=== PATIENT | female | born 1945 | race Caucasian/White ===

== ENCOUNTER → 2016-11-20 | Outpatient (CLI) | payer MEDICARE | END | disposition home or self-care (01) | LOC: PT 13:06 ==

== ENCOUNTER 2017-03-23 10:00 | Outpatient (RCR) | payer MEDICARE | END 2017-04-05 | disposition home or self-care (01) | LOC: PT | DX: Z47.1 Aftercare following joint replacement surgery (principal); Z96.651 Presence of right artificial knee joint ==

== ENCOUNTER → 2017-04-10 | Outpatient (CLI) | payer MEDICARE | LOC: MAMMO 08:06 | DX: Z12.31 Encounter for screening mammogram for malignant neoplasm of breast (principal) | CPT/HCPCS: G0202 ==

== ENCOUNTER 2018-12-29 10:08 | Emergency (ER) | payer MEDICARE ==
[~2018-12-29] VITALS: Wt 65.8 kg
[2018-12-29] MEDS ORDERED: TYMLOS1.56 ML SQ (10:13)
[2018-12-29] MEDS ORDERED: ZESTRIL5 M1 PO (10:13)
[2018-12-29] MEDS ORDERED: ONE-A-DAY ESSE1 EACH PO (10:14)
[2018-12-29] MEDS ORDERED: SYNTHROID0.075 MG PO (10:14)
[2018-12-29] MEDS ORDERED: CALCITRIOL0.25 MCG PO (10:14)
[2018-12-29 10:37] LABS: BASO # 0.1 (0.02-0.10); EOS # 0.1 (0.04-0.40); EOS % 1.1 % (1.0-5.0); HEMATOCRIT 39.7 % (37.0-47.0); HEMOGLOBIN 13.5 g/dL (12.5-16.0); LYMPH# 1.6 (1.50-4.00); MEAN CELL VOLUME 101 fl (78-100); MEAN CORPUSCULAR HEMOGLOBIN 34 pg (27-31); MEAN CORPUSCULAR HGB CONC 34 g/dL (33-37); MEAN PLATELET VOLUME 9.7 fl (7.4-10.4); MONO # 0.6 (0.20-0.80); NEU # 2.9 (1.40-6.50); PLATELET COUNT 261 K/mm3 (130-400); RED BLOOD COUNT 3.94 M/mm3 (4.10-5.30); RED CELL DISTRIBUTION WIDTH 12.7 % (11.5-14.5); WHITE BLOOD COUNT 5.2 K/mm3 (4.8-10.8)
[2018-12-29 10:48] LABS: ALBUMIN 4.2 g/dL (3.4-4.8); CALCIUM 9.8 mg/dL (8.4-10.2); POTASSIUM 4.2 mmol/L (3.5-5.1); TOTAL BILIRUBIN 0.4 mg/dL (0.2-1.2); TOTAL PROTEIN 7.3 g/dL (6.2-8.1)
[2018-12-29 12:03] LABS: URINE COLOR YELLOW
[2018-12-29 12:21] LABS: PH-URINE 7.5 (5.0 - 8.0); URINE APPEARANCE CLOUDY; URINE BILIRUBIN NEGATIVE (NEGATIVE); URINE GLUCOSE NEGATIVE (NEGATIVE); URINE KETONE NEGATIVE (NEGATIVE); URINE NITRATE NEGATIVE (NEGATIVE); URINE PROTEIN(semi-quant) NEGATIVE (NEGATIVE); URINE UROBILINOGEN NORMAL (NORMAL)
[2018-12-29 12:22] LABS: URINE BLOOD TRACE (NEGATIVE); URINE LEUKOCYTE ESTERASE TRACE (NEGATIVE); URINE MUCUS PRESENT (NOT PRESENT)
[2018-12-29 12:41] VITALS: BP 116/65
== END 2018-12-29 12:43 | disposition home or self-care (01) ==
LOC: ED 10:08
PROVIDERS: Family Medicine
DX: R10.10 Upper abdominal pain, unspecified (principal); E03.9 Hypothyroidism, unspecified; Z96.651 Presence of right artificial knee joint

== ENCOUNTER → 2019-05-07 | Outpatient (CLI) | payer MEDICARE ==
[~2019-05-07] MED LIST: CALCITRIOL0.25 MCG PO; ONE-A-DAY ESSE1 EACH PO; SYNTHROID0.075 MG PO; TYMLOS1.56 ML SQ; ZESTRIL5 M1 PO
== END ==
LOC: MAMMO 13:45
DX: Z12.31 Encounter for screening mammogram for malignant neoplasm of breast (principal)

== ENCOUNTER → 2019-07-01 | Outpatient (CLI) | payer MEDICARE | LOC: LAB 08:47 → RAD 08:47 | DX: R91.1 Solitary pulmonary nodule (principal) | CPT/HCPCS: Q9967 ==

== ENCOUNTER → 2019-08-05 | Day surgery (SDC) | payer MEDICARE | LOC: MSO 07:45 | DX: H25.12 Age-related nuclear cataract, left eye (principal); E78.00 Pure hypercholesterolemia, unspecified; I10 Essential (primary) hypertension; G43.909 Migraine, unspecified, not intractable, without status migrainosus; E03.9 Hypothyroidism, unspecified; Z96.651 Presence of right artificial knee joint | CPT/HCPCS: 00142; J0171; J2250; J3010; V2632 ==

== ENCOUNTER → 2019-09-10 | Day surgery (SDC) | payer MEDICARE | LOC: EDSTATUS 07:41 → MSO 07:42 | DX: H25.11 Age-related nuclear cataract, right eye (principal); E78.00 Pure hypercholesterolemia, unspecified; I10 Essential (primary) hypertension; G43.909 Migraine, unspecified, not intractable, without status migrainosus; E03.9 Hypothyroidism, unspecified; Z96.651 Presence of right artificial knee joint | CPT/HCPCS: 00142; J0171; J2250; V2632 ==

== ENCOUNTER → 2020-06-08 | Outpatient (CLI) | payer MEDICARE | LOC: MAMMO 14:20 | DX: Z12.31 Encounter for screening mammogram for malignant neoplasm of breast (principal) ==

== ENCOUNTER → 2020-07-05 | Outpatient (CLI) | payer MEDICARE | LOC: RAD 11:00 | DX: J84.10 Pulmonary fibrosis, unspecified (principal); R91.8 Other nonspecific abnormal finding of lung field ==

== ENCOUNTER 2020-12-30 10:28 | Emergency (ER) | payer OTHER, MEDICARE ==
[2020-12-30 13:03] VITALS: BP 144/78
== END 2020-12-30 13:02 | disposition home or self-care (01) ==
LOC: ED 10:28
DX: S32.019A Unspecified fracture of first lumbar vertebra, initial encounter for closed fracture (principal); I10 Essential (primary) hypertension; Z79.899 Other long term (current) drug therapy; W17.89XA Other fall from one level to another, initial encounter

== ENCOUNTER 2021-06-14 12:59 | Outpatient (RCR) | payer MEDICARE | END 2021-09-12 | disposition home or self-care (01) | LOC: PT | DX: M54.9 Dorsalgia, unspecified (principal); Z98.890 Other specified postprocedural states; Z87.81 Personal history of (healed) traumatic fracture ==

== ENCOUNTER → 2021-07-05 | Outpatient (CLI) | payer MEDICARE | LOC: MAMMO 13:45 | DX: Z12.31 Encounter for screening mammogram for malignant neoplasm of breast (principal) ==

== ENCOUNTER → 2021-07-12 | Outpatient (CLI) | payer MEDICARE | LOC: RAD 10:00 | DX: R91.8 Other nonspecific abnormal finding of lung field (principal); Z98.890 Other specified postprocedural states ==

== ENCOUNTER → 2023-10-30 | Outpatient (CLI) | payer MEDICARE | LOC: MAMMO 11:00 | DX: Z12.31 Encounter for screening mammogram for malignant neoplasm of breast (principal) ==

== ENCOUNTER → 2024-09-29 | Outpatient (CLI) | payer MEDICARE | LOC: RAD 13:48 | DX: R29.6 Repeated falls (principal) ==

== ENCOUNTER → 2024-09-30 | Outpatient (CLI) | payer MEDICARE | LOC: RAD 09:47 | DX: M48.56XD Collapsed vertebra, not elsewhere classified, lumbar region, subsequent encounter for fracture with routine healing (principal) ==

== ENCOUNTER → 2024-10-10 | Outpatient (CLI) | payer MEDICARE | LOC: RAD 10:19 | DX: M47.814 Spondylosis without myelopathy or radiculopathy, thoracic region (principal); M47.816 Spondylosis without myelopathy or radiculopathy, lumbar region; M41.84 Other forms of scoliosis, thoracic region; M41.86 Other forms of scoliosis, lumbar region ==

== ENCOUNTER → 2024-11-12 | Outpatient (CLI) | payer MEDICARE | LOC: RAD 10:07 | DX: M51.34 Other intervertebral disc degeneration, thoracic region (principal); Z98.890 Other specified postprocedural states; S32.029A Unspecified fracture of second lumbar vertebra, initial encounter for closed fracture; S32.049A Unspecified fracture of fourth lumbar vertebra, initial encounter for closed fracture; X58.XXXA Exposure to other specified factors, initial encounter; R29.6 Repeated falls ==

== ENCOUNTER → 2024-11-19 | Outpatient (CLI) | payer MEDICARE | LOC: RAD 14:02 | DX: S62.325A Displaced fracture of shaft of fourth metacarpal bone, left hand, initial encounter for closed fracture (principal); X58.XXXA Exposure to other specified factors, initial encounter ==